=== PATIENT | male | born 1965 | race African-American/Black ===

== ENCOUNTER 2023-01-30 08:27 | Emergency (ER) | payer OTHER ==
[2023-01-30 08:42] VITALS: BMI 34.0
[2023-01-30] MEDS ORDERED: SODIUM CHLORIDE 0.9% 500 ML INFUS.BAG IV ONE (09:21)
[2023-01-30 09:33] LABS: VENOUS BASE EXCESS -0.4 mmol/L (-2-2); VENOUS O2 SATURATION 83.5 % (70-80); VENOUS PCO2 45.2 mmHg (38-52); VENOUS PH 7.367 (7.310-7.410)
[2023-01-30 09:39] LABS: BASO % 0.3 % (0-2.0); EOS % 1.3 % (0-4.5); HEMATOCRIT 46.2 % (35.4-49); HEMOGLOBIN 15.9 GM/dL (11.7-16.9); MCH 29.6 pg (25.7-33.7); MCHC 34.4 g/dl (32.0-35.9); MEAN CELL VOLUME 86.2 fl (80-96); MEAN PLT VOLUME 9.3 fl (7.5-11.1); MONO % 8.6 % (3.8-10.2); NEUT % 65.8 % (42.8-82.8); PLATELET COUNT 147 10^3/uL (134-434); RBC 5.36 M/mm3 (4.00-5.60); RDW 12.7 % (11.9-15.9); WHITE BLOOD COUNT 5.8 K/mm3 (4.0-10.0)
[2023-01-30 10:50] LABS: CHLORIDE 98 mmol/L (98-107); POTASSIUM 4.5 mmol/L (3.5-5.1); SODIUM 136 mmol/L (136-145)
[2023-01-30 10:54] LABS: ANION GAP 10 MMOL/L (8-16); CALCIUM 9.3 mg/dL (8.5-10.1); CO2 28 mmol/L (21-32); MAGNESIUM 2.1 mg/dL (1.8-2.4)
[2023-01-30 10:57] LABS: CREATININE 1.4 mg/dL (0.55-1.3); PHOSPHOROUS 3.4 mg/dL (2.5-4.9); SGOT/AST 18 U/L (15-37); SGPT/ALT 24 U/L (13-61)
[2023-01-30 10:58] LABS: BILIRUBIN,TOTAL 0.3 mg/dL (0.2-1); TOT PROT 7.5 g/dl (6.4-8.2)
[2023-01-30 10:59] LABS: ALK PHOS 88 U/L (45-117)
[2023-01-30 11:13] LABS: GLUCOSE,RANDOM 452 mg/dL (74-106)
[2023-01-30] MEDS ORDERED: SODIUM CHLORIDE 1,000 ML IV STA (11:26)
[2023-01-30] MEDS ORDERED: INSULIN REGULAR HUMAN 100 UNITS/ML *VIAL SQ ONE ×2 (11:36→12:29)
[2023-01-30 12:30] VITALS: BP 115/81; PULSE 75; RESP 18; TEMP 97.3
[2023-01-30 20:56] LABS: URINE APPEARANCE CLEAR; URINE BILIRUBIN NEGATIVE (NEGATIVE); URINE COLOR YELLOW; URINE GLUCOSE (UA) 3+ (NEGATIVE); URINE KETONE NEGATIVE (NEGATIVE); URINE LEUK ESTERASE NEGATIVE (NEGATIVE); URINE NITRITE NEGATIVE (NEGATIVE); URINE PROTEIN NEGATIVE (NEGATIVE); URINE UROBILINOGEN 0.2 mg/dL (0.2-1.0)
== END 2023-01-30 14:10 | disposition home or self-care (01) ==
LOC: JER 08:27
DX: E11.65 Type 2 diabetes mellitus with hyperglycemia (principal); R35.89 Other polyuria
CPT/HCPCS: 36415; 71046-TC-FY; 80053; 81003; 82010; 82803; 82962; 83036; 83735; 84100; 85025; 87086; 93005; 93010; 99285-25

== ENCOUNTER 2023-06-01 05:57 | Emergency (ER) | payer OTHER ==
[2023-06-01 06:45] VITALS: BP 132/83; PULSE 88; RESP 18; TEMP 98.4; BMI 32.8
[2023-06-01] MEDS ORDERED: LIDOCAINE 5% TOPICAL PATCH TP ONE (07:36)
[2023-06-01] MEDS ORDERED: ACETAMINOPHEN 500 MG TABLET (FP) PO ONE (07:36)
[2023-06-01] MEDS ORDERED: LIDOCAINE 4% PATCH TP ONE ×2 (07:54→07:56)
[2023-06-01] MEDS ORDERED: ACETAMINOPHEN 500 MG TABLET (FP) ONE (07:55)
[2023-06-01 08:38] LABS: PH,URINE 5.5 (5.0-8.0); URINE APPEARANCE CLEAR; URINE BILIRUBIN NEGATIVE (NEGATIVE); URINE COLOR YELLOW; URINE GLUCOSE (UA) NEGATIVE (NEGATIVE); URINE KETONE NEGATIVE (NEGATIVE); URINE LEUK ESTERASE NEGATIVE (NEGATIVE); URINE NITRITE NEGATIVE (NEGATIVE); URINE PROTEIN NEGATIVE (NEGATIVE)
[2023-06-01] MEDS ORDERED: LIDOCAINE PATCH REMOVAL MC ONE ×2 (22:00)
== END 2023-06-01 09:39 | disposition home or self-care (01) ==
LOC: JER 05:57
DX: M79.605 Pain in left leg (principal); M25.552 Pain in left hip; M46.1 Sacroiliitis, not elsewhere classified
CPT/HCPCS: 72100-TC-FY; 73521-TC-FY; 81003; 87086; 99284-25

== ENCOUNTER 2024-02-29 07:48 | Emergency (ER) | payer OTHER ==
[2024-02-29 07:57] VITALS: BMI 29.0
[2024-02-29] MEDS ORDERED: ONDANSETRON 4 MG/2 ML VIAL ONE (09:13)
[2024-02-29 09:18] LABS: BASO % 0.5 % (0-2.0); EOS % 0.9 % (0-4.5); HEMATOCRIT 49.6 % (35.4-49); HEMOGLOBIN 17.5 GM/dL (11.7-16.9); LYMPH % 20.1 % (8-40); MCH 30.9 pg (25.7-33.7); MCHC 35.3 g/dl (32.0-35.9); MEAN CELL VOLUME 87.6 fl (80-96); MONO % 6.8 % (3.8-10.2); NEUT % 71.7 % (42.8-82.8); PLATELET COUNT 166 10^3/uL (134-434); RBC 5.66 M/mm3 (4.00-5.60); RDW 13.6 % (11.9-15.9); WHITE BLOOD COUNT 7.2 K/mm3 (4.0-10.0)
[2024-02-29] MEDS: SODIUM CHLORIDE 0.9% 1000 ML INFUS.BAG IV ONE (09:20)
[2024-02-29] MEDS: ONDANSETRON 4 MG/2 ML VIAL IVPUSH ONE (09:20)
[2024-02-29 09:35] LABS: PH,URINE 5.5 (5.0-8.0); URINE APPEARANCE CLEAR; URINE BILIRUBIN NEGATIVE (NEGATIVE); URINE COLOR YELLOW; URINE GLUCOSE (UA) 3+ (NEGATIVE); URINE KETONE 1+ (NEGATIVE); URINE LEUK ESTERASE NEGATIVE (NEGATIVE); URINE NITRITE NEGATIVE (NEGATIVE); URINE PROTEIN NEGATIVE (NEGATIVE); URINE UROBILINOGEN 0.2 mg/dL (0.2-1.0)
[2024-02-29 09:44] LABS: POTASSIUM 4.2 mmol/L (3.5-5.1)
[2024-02-29 09:46] LABS: BLOOD UREA NITROGEN 16.6 mg/dL (7-18); CALCIUM 9.2 mg/dL (8.5-10.1)
[2024-02-29 09:47] LABS: ALBUMIN 4.2 g/dl (3.4-5.0)
[2024-02-29 09:50] LABS: CREATININE 1.3 mg/dL (0.55-1.3)
[2024-02-29 09:51] LABS: BILIRUBIN,TOTAL 1.4 mg/dL (0.2-1)
[2024-02-29 09:53] LABS: TOT PROT 7.9 g/dl (6.4-8.2)
[2024-02-29 14:24] VITALS: BP 126/79; PULSE 84; RESP 16; TEMP 98.2
== END 2024-02-29 14:24 | disposition home or self-care (01) ==
LOC: JERFT 07:48 → JER 07:48 → JERFT 14:24
PROC: 3E033GC Introduction of Other Therapeutic Substance into Peripheral Vein, Percutaneous Approach (ICD-10-PCS; principal; 2024-02-29)
DX: K52.9 Noninfective gastroenteritis and colitis, unspecified (principal); R11.2 Nausea with vomiting, unspecified; R19.7 Diarrhea, unspecified; Z20.822 Contact with and (suspected) exposure to COVID-19
CPT/HCPCS: 0241U-QW; 36415; 71046-TC-FY; 74177-TC; 76705-TC; 80053; 81003; 82010; 82962; 85025; 87086; 93005; 93010; 99285-25; Q9967

== ENCOUNTER 2024-04-18 05:18 | Emergency (ER) | payer OTHER ==
[2024-04-18 05:23] VITALS: BP 145/97; PULSE 83; RESP 17; TEMP 97.8; BMI 29.4
[2024-04-18] MEDS: SODIUM CHLORIDE 0.9% 500 ML INFUS.BAG IV ONE ×2 (06:23→08:43)
[2024-04-18 08:51] LABS: VENOUS BASE EXCESS 1.4 mmol/L (-2-2); VENOUS O2 SATURATION 50.3 % (70-80); VENOUS PCO2 50.8 mmHg (38-52); VENOUS PH 7.359 (7.310-7.410)
[2024-04-18 08:53] LABS: URINE APPEARANCE CLEAR; URINE BILIRUBIN NEGATIVE (NEGATIVE); URINE COLOR YELLOW; URINE GLUCOSE (UA) 3+ (NEGATIVE); URINE KETONE NEGATIVE (NEGATIVE); URINE LEUK ESTERASE NEGATIVE (NEGATIVE); URINE NITRITE NEGATIVE (NEGATIVE); URINE PROTEIN NEGATIVE (NEGATIVE); URINE UROBILINOGEN 0.2 mg/dL (0.2-1.0)
[2024-04-18 08:54] LABS: BASO % 0.8 % (0-2.0); EOS % 1.5 % (0-4.5); HEMATOCRIT 45.1 % (35.4-49); HEMOGLOBIN 15.7 GM/dL (11.7-16.9); LYMPH % 23.6 % (8-40); MCH 30.3 pg (25.7-33.7); MCHC 34.8 g/dl (32.0-35.9); MEAN CELL VOLUME 87.2 fl (80-96); MEAN PLT VOLUME 8.8 fl (7.5-11.1); MONO % 7.3 % (3.8-10.2); NEUT % 66.8 % (42.8-82.8); PLATELET COUNT 132 10^3/uL (134-434); RBC 5.18 M/mm3 (4.00-5.60); WHITE BLOOD COUNT 6.6 K/mm3 (4.0-10.0)
[2024-04-18 09:24] LABS: POTASSIUM 4.1 mmol/L (3.5-5.1)
[2024-04-18 09:25] LABS: BLOOD UREA NITROGEN 18.4 mg/dL (7-18); CALCIUM 9.1 mg/dL (8.5-10.1)
[2024-04-18 09:27] LABS: ALBUMIN 3.5 g/dl (3.4-5.0)
[2024-04-18 09:28] LABS: CREATININE 1.4 mg/dL (0.55-1.3)
[2024-04-18 09:31] LABS: BILIRUBIN,TOTAL 0.4 mg/dL (0.2-1); TOT PROT 6.9 g/dl (6.4-8.2)
== END 2024-04-18 11:01 | disposition home or self-care (01) ==
LOC: JER 05:18
DX: E11.65 Type 2 diabetes mellitus with hyperglycemia (principal); E86.0 Dehydration
CPT/HCPCS: 36415; 80053; 81003; 82010; 82803; 82962; 85025; 99284-25